=== PATIENT | female | born 1950 | race Two or more races ===

== ENCOUNTER → 2021-05-17 14:30 | Outpatient (BNVA) | payer MEDICARE, SELFPAY | PROVIDERS: PCP Nurse Practitioner Family; Visit Provider Nurse Practitioner Family | DX: R56.9 Unspecified convulsions (principal); G47.33 Obstructive sleep apnea (adult) (pediatric); G47.61 Periodic limb movement disorder; Z79.899 Other long term (current) drug therapy | CPT/HCPCS: 99212 ==

== ENCOUNTER → 2021-09-10 13:57 | Outpatient (BNVA) | payer MEDICARE, SELFPAY | PROVIDERS: PCP Nurse Practitioner Family; Visit Provider Nurse Practitioner Family | DX: G47.33 Obstructive sleep apnea (adult) (pediatric) (principal); R56.9 Unspecified convulsions | CPT/HCPCS: 99212 ==

== ENCOUNTER → 2022-05-02 14:08 | Outpatient (BNVA) | payer MEDICARE, SELFPAY | PROVIDERS: PCP Nurse Practitioner Family; Visit Provider Nurse Practitioner Family | DX: R56.9 Unspecified convulsions (principal); G47.33 Obstructive sleep apnea (adult) (pediatric); Z79.899 Other long term (current) drug therapy; Z63.4 Disappearance and death of family member | CPT/HCPCS: 99212 ==

== ENCOUNTER → 2022-10-30 11:41 | Outpatient (BNVA) | payer MEDICARE, SELFPAY | PROVIDERS: PCP Nurse Practitioner Family; Visit Provider Nurse Practitioner Family | DX: R56.9 Unspecified convulsions (principal); G47.33 Obstructive sleep apnea (adult) (pediatric) | CPT/HCPCS: 99212 ==

== ENCOUNTER 2023-09-01 10:53 | Outpatient (AMB) | payer MEDICARE, SELFPAY ==
--- NOTE | 2023-09-01 11:16 | MHC.OFFVIS ---
Vital Signs 09/01/23 11:25 Height 5 ft 4 in Weight 124 lb 8 oz BMI 21.4 BP 115/80 Blood Pressure Location Rt brachial Position Sitting Pulse 82 Pulse Source Pulse Oximeter Pulse Oximetry (%) 96 Oxygen Delivery Method Room Air Intake Visit Reasons: follow up-CONF Intake Note: Patient presents for f/u. Allergies Seasonal Allergies Allergy (Unknown, Verified 09/01/23 11:20) Unknown Medication List - Last Reconciled 09/01/23 by MILTON Chavis alendronate (Fosamax) 70 mg PO QWEEK calcium carbonate (Oyster Shell Calcium) 500 mg PO DAILY cholecalciferol (vitamin D3) 25 mcg PO DAILY levetiracetam 500 mg PO BID 30 days lisinopril 5 mg PO DAILY HPI Comments Details: 73-yr-old female presents for f/u visit. Pt states she was started on Calcium and Alendronate for osteoporosis- which she is tolerating well. No seizures. Sleeping ok- sometimes may have fragmented sleep, and may take day time naps- notes she lives alone. States her memory is good- may keep lists if she has a couple of things to do. Recently did not pay a bill, but thinks she just did not see the bill. Doing word finding puzzles. She is trying to stay active. Working in her garden. Has been having some recent increased allergy symptoms- tends to happen around this time of year. Plans to buy OTC Claritin. She is compliant with Keppra. Tolerating well. She states she has routine blood work at [facility]. No alcohol or drug use. [facility] Surgical History H/O section Family History Mother Diabetes HTN (hypertension) Asthma Sister Colon cancer Breast cancer Social History Alcohol intake: former Patient Tobacco Use Status: Never used Tobacco Review of Systems Const All systems reviewed & are unremarkable except as noted in HPI and below Physical Exam Vital Signs: Last Vital Signs Pulse 82 09/01/23 11:25 BP 115/80 09/01/23 11:25 Pulse Ox 96 09/01/23 11:25 Oxygen Delivery Method Room Air 09/01/23 11:25 BMI result Body Mass Index 21.4 Const General: cooperative and no acute distress Orientation/consciousness: patient oriented x3 HEENT Head: Yes normocephalic Resp Effort & Inspection: normal respiratory effort and able to speak in complete sentences Neuro General: patient oriented x3, gait normal and CN's II-XI intact bilaterally Cognition (Neuro): normal cognition Motor exam (neuro): 5/5 motor strength present throughout Psych Appearance: grossly normal Mental Status: mental status grossly normal Speech and movement: Normal speech and movement present Affect: normal affect Attitude: cooperative Thought process: Normal thought process present Thought content: Normal thought content present Insight: Good insight present (Psych) Judgement: Good judgement present (Psych) Assessment & Plan Assessment & Plan (1) Seizure: Code(s): R56.9 - Unspecified convulsions Category: Medical (2) Obstructive sleep apnea: Comment: AHI 12/hr, O2 cary 82%, PLMS 30/hr with arousal index of 7.8/hr Code(s): G47.33 - Obstructive sleep apnea (adult) (pediatric) Category: Medical Plan Continue Keppra 500mg bid. Will request labs from PCP office. Pt does NOT drive. For MILD FELICIANO- monitor sleep. Pt has declined PAP tx. f/u in 12 months or sooner prn. Medications: Refilled levetiracetam 500 mg PO BID 30 days 60 tabs 11RF Coding Level of Care Code Est Pt Level 4 (66893) Diagnoses Seizure R56.9 Obstructive sleep apnea G47.33
[2023-09-01 11:25] VITALS: BP 115/80; PULSE 82; O2SAT 96; BMI 21.4
== END 2023-09-01 12:12 | disposition home or self-care (01) ==
PROVIDERS: PCP Nurse Practitioner Family; Visit Provider Nurse Practitioner Family
DX: R56.9 Unspecified convulsions (principal); G47.33 Obstructive sleep apnea (adult) (pediatric)
CPT/HCPCS: 99214

== ENCOUNTER → 2023-09-01 10:53 | Outpatient (BNVA) | payer MEDICARE, SELFPAY | PROVIDERS: PCP Nurse Practitioner Family; Visit Provider Nurse Practitioner Family | DX: G47.33 Obstructive sleep apnea (adult) (pediatric) (principal); R56.9 Unspecified convulsions | CPT/HCPCS: 99212 ==

== ENCOUNTER 2024-08-31 10:54 | Outpatient (REF) | payer MEDICARE, SELFPAY ==
--- OUTSIDE RECORDS SUMMARY | 2024-08-31 13:46 | XMS_ITS | Clinical Summary ---
Author Organization [facility] Address [address] [place] [address] Care Team Providers Care Grip Name Role Phone Madelaine Donald PA-C Primary Care Provider [phone] Source Comments PLEASE NOTE, if this patient is a minor, it may be UNLAWFUL to discuss sensitive information that is contained in these records (such as FAMILY PLANNING, MENTAL HEALTH or SUBSTANCE ABUSE) with the minor patient's parent or other person without the patient's specific authorization.[facility] Allergies No known active allergies Medications DAILY-DANYELL tablet Take 1 Tab by mouth once [...] 11/28/20 - POSITIVE FOR OSTEOPOROSIS. Cocaine abuse ([facility]) 11/18/2018 Mixed hyperlipidemia 11/12/2018 Closed fracture of nasal bones 11/11/2018 Status epilepticus ([facility]) 11/11/2018 Alcohol abuse 11/11/2018 Closed fracture of orbit ([facility]) 11/11/2018 Essential hypertension 11/11/2018 Resolved Problems [...] Wellness Visit 04/16/2022 1 06/17/2020, 02/21/2020, 11/11/2018 [id number] ( season) 2023 12/10/2021, 05/25/2021, 09/11/2020, Additional [...] EST) GLUCOSE 147(H) 65 - 99 mg/dL [facility] Comment: ?Fasting reference interval For someone without known diabetes, a glucose value >125 mg/dL indicates that they may have diabetes and this should be confirmed with a follow-up test. UREA NITROGEN (BUN) 7 7 - 25 mg/dL [facility] CREATININE (blood) 0.72 0.60 - 1.00 mg/dL [facility] EGFR 88 > OR = 60 mL/min/1. 73m2 [facility] BUN/CREATININE RATIO SEE NOTE: 5 [employer] Comment: ?? Not Reported: BUN and Creatinine are within ?? reference range. ? SODIUM 130(L) 135 - 146 mmol/L [facility] POTASSIUM 4.6 3.5 - 5.3 mmol/L [facility] CHLORIDE 94(L) 98 - 110 mmol/L [facility] CARBON DIOXIDE 28 20 - 32 mmol/L [facility] CALCIUM 9.8 8.6 - 10.4 mg/dL [facility] Blood Blood / Unknown 04/06/2024 1 1:04 AM EST 04/06/2024 11:05 AM EST Madelaine Donald PA-C LAB - BLOOD DRAW Final Resul t [facility] [address] [address], [facility] [address] [address] * HISTORIC MAMMOGRAM (08/15/2022 3:00 AM EDT) 08/15/2022 3:00 AM EDT Cait Bautista [employer]AT DOCK OPERATOR IMG MAMMO Final Resul t * (ABNORMAL) LIPID PANEL (04/16/2021 4:01 PM EST) CHOLESTEROL, TOTAL 223(H) <200 mg/dL [facility] HDL CHOLESTEROL 35(L) > OR = 50 mg/dL [facility] TRIGLYCERIDES 195(H) <150 mg/dL [facility] LDL-CHOLESTEROL 154(H) 99 mg/dL (calc) [facility] Comment: Reference range: <100 Desirable range <100 mg/dL for primary prevention; ?? <70 mg/dL for patients with CHD or diabetic patients with > or = 2 CHD risk factors. LDL-C is now calculated using the Alcira calculation, which is a validated novel method providing better accuracy than the Friedewald equation in the estimation of LDL-C. Cali ADAMS et al. SUBHASH. 2013;310(19): 2349-2260 (http://education.[employer] Education.DocuSpeak/faq/QLQ920) CHOL/HDLC RATIO 6.4(H) <5.0 (calc) [facility] NON-HDL CHOLESTEROL 188(H) <130 mg/dL (calc) [facility] Comment: For patients with diabetes plus 1 major ASCVD risk factor, treating to a non-HDL-C goal of <100 mg/dL (LDL-C of <70 mg/dL) is considered a therapeutic option. Blood Blood / Unknown 04/16/2021 4 :01 PM EST 04/16/2021 4:01 PM EST [facility] - BLOOD DRAW Final Resu lt [facility] [address] [address], [facility] [address] [address] * DUAL-ENERGY X-RAY ABSORPTIOMETRY (DXA), BONE DENSITY STUDY, 1 OR MORE (12/03/2020 7:39 PM EDT) 12/03/2020 7:39 PM EDT [facility] IMG DXA Final Resul t * REFERRAL FOR COLONOSCOPY (05/19/2020) [facility] REFERRAL Edited Resu lt - Final * HEPATITIS A,B,C PANEL (11/12/2018 8:45 AM EDT) HEPATITIS B SURFACE ANTIBODY NEGATIVE NEGATIVE [facility] HEPATITIS B SURFACE ANTIGEN NEGATIVE NEGATIVE [facility] Comment: Over the counter supplements containing high doses of biotin may interfere with this assay. ??If interference is suspected, patients shoud be retested after refraining from biotin supplements for 72 hours. HEPATITIS C VIRUS DIAGNOSTIC NEGATIVE NEGATIVE [facility] HEPATITIS B CORE ANTIBODY NEGATIVE NEGATIVE [facility] HEPATITIS A ANTIBODY TOTAL NEGATIVE NEGATIVE [facility] Comment: Over the counter supplements containing high doses of biotin may interfere with this assay. ??If interference is suspected, patients shoud be retested after refraining from biotin supplements for 72 hours. Blood specimen (specimen) Blood / Unknown 11/12/2018 8:45 AM EDT 11/12/2018 9:08 AM EDT Narrative [facility] - 11/12/2018 12:25 PM EDT [employer], a member of [address] [address] Project Program Manager - Viktoriya Jade MD PT ID [id number] ORD# [id number] [facility] - BLOOD DRAW Edited Res ult - Final [facility] [address] [place] [address], from Last 3 Months or Most Recently Relevant to Health Maintenance Insurance HEALTH [employer]AF[employer] MED[employer]ARE Care Teams Grip Relationship Specialty Start Date End Date Madelaine Donald PA-C [address] [place] [address] PCP - General FAMILY MEDICINE, KATE 08/31/21
--- OUTSIDE RECORDS SUMMARY | 2024-08-31 13:46 | XMS_ITS | Clinical Summary ---
Author Organization [facility] Address [address] [place] [address] Care Team Providers Care Aluminum Shingle Roofer Name Role Phone Unavailable Primary Care Provider [...]
[2024-08-31 17:38] LABS: MANUAL DIFF FLAG NO
[2024-08-31 17:48] LABS: Basophils Percent Auto 0.8 % (0-2); Eosinophils Absolute Auto 0.1 X10*3/uL (0.0-0.4); Eosinophils Percent Auto 2.8 % (0-4); Hematocrit 37.1 % (37.0-47.0); Hemoglobin 12.8 g/dl (12.0-16.0); Imm Gran Abs Auto 0.01 X10*3/uL (0.00-0.03); Imm Gran Pct Auto 0.3 % (0.0-0.4); Lymphocytes Absolute Auto 1.4 X10*3/uL (1.2-4.9); Lymphocytes Percent Auto 36.5 % (20-40); Mean Corpuscular HGB Conc 34.5 g/dl (31.0-35.0); Mean Corpuscular Hemoglobin 32.5 pg (27.0-33.0); Mean Corpuscular Volume 94.2 fL (80.0-98.0); Mean Platelet Volume 8.9 fL (9.4-12.3); Monocytes Absolute Auto 0.6 X10*3/uL (0.1-1.2); Monocytes Percent Auto 13.9 % (2-11); Neutrophils Absolute Auto 1.8 x10*3/uL (2.0-8.3); Neutrophils Percent Auto 45.7 % (45-73); Platelet Count 314 X10*3/uL (160-400); Red Blood Count 3.94 X10*6/uL (4.20-5.50); Red Cell Distribution Width 12.4 % (11.0-16.0)
[2024-08-31 18:49] LABS: Alanine Aminotransferase 33 U/L (0-31); Albumin Level 4.4 g/dL (3.5-5.0); Alkaline Phosphatase 58 U/L (39-117); Anion Gap 14 (12-20); Aspartate Amino Transferase 41 U/L (5-31); Bilirubin Total 1.2 mg/dL (0.0-1.0); Blood Urea Nitrogen 6 mg/dL (9-16); Calcium 9.6 mg/dL (8.4-10.2); Carbon Dioxide 26 mmol/L (22-29); Chloride 95 mmol/L (96-108); Estimated Glomerular Filt Rate > 60; Glucose Random 90 mg/dL (60-115); Potassium 4.7 mmol/L (3.3-5.1); Sodium 130 mmol/L (135-145); Total Protein 8.4 g/dL (6.5-8.0)
== END 2024-08-31 10:55 | disposition home or self-care (01) ==
LOC: HO.HKASLDS 10:54
PROVIDERS: Visit Provider Nurse Practitioner Family
DX: R56.9 Unspecified convulsions (principal); G47.33 Obstructive sleep apnea (adult) (pediatric)
CPT/HCPCS: 36415; 80053; 85025; 99212

== ENCOUNTER 2024-08-31 10:54 | Outpatient (AMB) | payer MEDICARE, SELFPAY ==
[2024-08-31 11:27] VITALS: BP 130/82; PULSE 90; O2SAT 97; BMI 21.5
--- NOTE | 2024-08-31 11:27 | A.OFFVIS_ITS ---
Vital Signs 08/31/24 11:27 Height 5 ft 4 in Weight 125 lb BMI 21.5 BP 130/82 Blood Pressure Location Rt brachial Position Sitting Pulse 90 Pulse Source Pulse Oximeter Pulse Oximetry (%) 97 Oxygen Delivery Method Room Air Intake Visit Reasons: 1 yr follow up Intake Note: Patient presents follow up for FELICIANO/Seizures. Refrigerated Cargo Clerk Required: No Accompanied by: Self / Same As Patient Allergies Seasonal Allergies Allergy (Unknown, Verified 08/31/24 11:35) Unknown Medication List - Last Reconciled 08/31/24 by MILTON Chavis alendronate (Fosamax) 70 mg PO QWEEK calcium carbonate (Oyster Shell Calcium) 500 mg PO DAILY cholecalciferol (vitamin D3) 25 mcg PO DAILY levetiracetam 500 mg PO BID 30 days lisinopril 5 mg PO DAILY HPI Comments Details: 74-yr-old female presents for f/u visit. Pt denies any interval medical history changes. We did not receive lab work from patient's PCP office after last visit, review of [employer], shows last BMP in March 2024, showed low serum sodium level, no CBC or LFTs completed. Patient wonders if she should reduce her levetiracetam dose. Pt denies any interval seizures. Sleeping ok. States her memory is good. May forget an actor's name- briefly then it comes to her. She is trying to stay active at home. Needs more help with her garden d/t her back pain- d/t her osteoporosis. She is compliant with Keppra. Tolerating well. She states she has routine blood work at [facility]. No alcohol or drug use. [facility] Surgical History H/O section Family History Mother Diabetes HTN (hypertension) Asthma Sister Colon cancer Breast cancer Social History Alcohol intake: former Patient Tobacco Use Status: Never used Tobacco Physical Exam Vital Signs: Last Vital Signs Pulse 90 08/31/24 11:27 BP 130/82 08/31/24 11:27 Pulse Ox 97 08/31/24 11:27 Oxygen Delivery Method Room Air 08/31/24 11:27 BMI result Body Mass Index 21.5 Const General: cooperative and no acute distress Orientation/consciousness: patient oriented x3 HEENT Head: Yes normocephalic Resp Effort & Inspection: normal respiratory effort and able to speak in complete sentences Neuro General: patient oriented x3, gait normal and CN's II-XI intact bilaterally Cognition (Neuro): normal cognition Motor exam (neuro): 5/5 motor strength present throughout Psych Appearance: grossly normal Mental Status: mental status grossly normal Speech and movement: Normal speech and movement present Affect: normal affect Attitude: cooperative Thought process: Normal thought process present Thought content: Normal thought content present Insight: Good insight present (Psych) Judgement: Good judgement present (Psych) Assessment & Plan Assessment & Plan (1) Seizure: Code(s): R56.9 - Unspecified convulsions Category: Medical (2) Obstructive sleep apnea: Comment: AHI 12/hr, O2 cary 82%, PLMS 30/hr with arousal index of 7.8/hr Code(s): G47.33 - Obstructive sleep apnea (adult) (pediatric) Category: Medical Plan Discussed that I would not reduce levetiracetam dose, as her seizure activity is well controlled on low-dose levetiracetam, which she is tolerating well. Discussed patient's seizure activity that precipitated use of levetiracetam, was a generalized tonic-clonic seizure that occurred while driving. Patient's risk of seizure recurrence if she were to stop levetiracetam is not negligible, thus I suggest she continue her levetiracetam at current dosage. Continue Keppra 500mg bid. Check CBC and CMP today. Pt does NOT drive. For mild FELICIANO: Continue to monitor sleep. Pt has declined PAP tx. Will follow-up upon review of above and patient to follow-up in clinic in 12 months or sooner prn. Orders: Orders Complete Blood Count Auto Diff Today R56.9 - Unspecified convulsions Comprehensive Met. Panel Today R56.9 - Unspecified convulsions Medications: Changed From levetiracetam 500 mg PO BID 30 days 60 tabs 11RF To levetiracetam 500 mg PO BID 90 days 180 tabs 3RF Coding Level of Care Code Est Pt Level 4 (25103) Diagnoses Seizure R56.9 Obstructive sleep apnea G47.33
--- OUTSIDE RECORDS SUMMARY | 2024-08-31 12:37 | XMS_ITS | Clinical Summary ---
[facility] [address] [place] [address] Care Team Providers Care Insurance Claims Analyst Name Role Phone Unavailable Primary Care Provider Unavailabl e Social History Tobacco Use Types Packs/Day Years Used Date Smoking Tobacco: Never Assessed Comments Unknown Sex and Gender Information Value Date Recorded Sex Assigned at Not on file Legal Sex Female 5:14 PM EST Gender Identity Not on file Sexual Orientation Not on file Plan of Treatment Health Maintenance Due Date Last Done Comments Breast Cancer Screening 1950 DTaP,Tdap,and Td Vaccines (1 - Tdap) 1970 11/18/2018 Pneumococcal Vaccine: 50+ Years (1 of 1 - PCV) 2001 01/19/2020 Zoster Vaccines (1 of 2) 2001 04/24/2020, 01/27 COVID-19 Vaccine ( season) 2023 12/10/2021, 05/25/2021, 09/11/2020, Additional history exists Influenza Vaccine (Season Ended) 2024 01/19/2020 RSV Immunization Adult Patients (1 - 1-dose 75+ series) 2026 HIB Vaccines Aged Out No longer eligi ble based on patient's age to complete this topic HPV Vaccines Aged Out No longer eligi ble based on patient's age to complete this topic Hepatitis A Vaccines Aged Out No long er eligible based on patient's age to complete this topic Hepatitis B Vaccines Aged Out 01/08/2019, 11/19/19 19 No longer eligible based on patient's age to complete this topic IPV Vaccines Aged Out No longer eligi ble based on patient's age to complete this topic MMR Vaccines Aged Out No longer eligi ble based on patient's age to complete this topic Meningococcal ACWY Vaccine Aged Out N o longer eligible based on patient's age to complete this topic Meningococcal B Vaccine Aged Out No l onger eligible based on patient's age to complete this topic RSV Immunization Patients Under 20 months Aged Out No longer eligible based on patient's age to complete this topic Varicella Vaccines Aged Out No longer eligible based on patient's age to complete this topic
--- OUTSIDE RECORDS SUMMARY | 2024-08-31 12:37 | XMS_ITS | Clinical Summary ---
Author Organization [facility] Address [address] [place] [address] Care Team Providers Care Knitting Machine Operator Automatic Name Role Phone Madelaine Donald PA-C Primary Care Provider [phone] Source Comments PLEASE NOTE, if this patient is a minor, it may be UNLAWFUL to discuss sensitive information that is contained in these records (such as FAMILY PLANNING, MENTAL HEALTH or SUBSTANCE ABUSE) with the minor patient's parent or other person without the patient's specific authorization.[facility] Allergies No known active allergies Medications DAILY-DAYNELL tablet Take 1 Tab by mouth once daily 0 9 Active levETIRAcetam (KEPPRA) 500 mg tabletIndications :Seizure (HCC-CMS) Take 1 Tablet by mouth 2 (two) times daily 1 Active calcium (OS-HEMANTH) 500 mg calcium (1,250 mg) tabletIndications :Age-related osteoporosis without current pathological fracture TAKE ONE TABLET BY MOUTH EVERY DAY. FAB UN COMPRIMIDO A.L DONNA 100 Tablet 1 4 Active alendronate (FOSAMAX) 70 mg tabletIndications :Age-related osteoporosis without current pathological fracture TAKE ONE TABLET BY MOUTH EVERY 7 DAYS 12 Tablet 1 4 Active VITAMIN D3 25 mcg (1,000 unit) capsuleIndication s:Vitamin D deficiency TAKE ONE CAPSULE BY MOUTH EVERY DAY 90 Capsule 1 4 Active lisinopriL 5 mg tabletIndications :Essential hypertension TAKE ONE TABLET BY MOUTH EVERY DAY 100 Tablet 1 4 Active Active Problems Problem Noted Date Diagnosed Date Age-related osteoporosis wit hout current pathological fracture 12/10/2020 Overview (12/10/2020): DEXA BONE DENSITY DONE 11/28/20 - POSITIVE FOR OSTEOPOROSIS. Cocaine abuse ([facility]) 11/18/2018 Mixed hyperlipidemia 11/12/2018 Closed fracture of nasal bones 11/11/2018 Status epilepticus ([facility]) 11/11/2018 Alcohol abuse 11/11/2018 Closed fracture of orbit ([facility]) 11/11/2018 Essential hypertension 11/11/2018 Resolved Problems Problem Noted Date Diagnosed Date Resolved Date HIV exposure 11/12/2018 04/16/2019 Immunizations Immunization Administration Dates Next Due Flu, High Dose, 65y+, Fluzon e High Dose 01/19/2020 Hep B, Adult/Adol (ENERGIX/RECOMBIVAX) 01/08/2019,11/18/2018 Moderna COVID-19 Vaccine, re d cap blue label, 12+ Primary Series 12/10/2021,05/25/2021,09/11/2020,08/12 PNEUMOCOCCAL CONJUGATE PCV 13 01/19/2020 TDAP 11/18/2018 ZOSTER VACCINE, RECOMBINANT (SHINGRIX) 04/24/2020,02/21/2020 04/24/2020 Social History Tobacco Use Types Packs/Day Years Used Date Smoking Tobacco: Never Smokeless Tobacco: Never Tobacco Cessation:Counseling Given: Not Answered Alcohol Use Standard Drinks/Week Comments Not Currently 2 (1 standard drink = 0.6 oz pur e alcohol) Social Connections Answer Date Recorded Connectedness 0 12/10/2021 Financial Resource Strain Answer Date R ecorded Financial Resource Strain 0 2021 Stress Answer Date Recorded Stress 0 12/10/2021 Physical Activity Answer Date Recorded Physical Activity 0 12/14/2018 Food Insecurity Answer Date Recorded Food 0 12/10/2021 Transportation Needs Answer Date Record ed Transportation 0 12/10/2021 Housing Stability Answer Date Recorded Housing 0 12/10/2021 Safety and Environment Answer Date Nasim rded Safety 0 12/14/2018 Utilities Answer Date Recorded Utilities 0 12/10/2021 Employment Answer Date Recorded Employment 0 12/14/2018 Comments No Sex and Gender Information Value Date Recorded Sex Assigned at Female 11/11/2018 7:49 PM PDT Legal Sex Female 9:00 AM PDT Gender Identity Female 11/11/2018 7:49 PM PDT Sexual Orientation Straight 11/11/2018 7: 49 PM PDT Last Filed Vital Signs Vital Sign Reading Time Taken Comments Blood Pressure 116/64 12/10/2021 11:22 AM EDT Pulse 88 12/10/2021 11:22 AM EDT Temperature 36.7 ??C (98.1 ??F) 12/10/2021 11:22 AM E DT Respiratory Rate 20 12/10/2021 11:22 AM EDT Oxygen Saturation - - Inhaled Oxygen Concentration - - Weight 54 kg (119 lb) 12/10/2021 11:22 AM EDT Height 160 cm (5' 3 ) 12/10/2021 11:22 AM EDT Body Mass Index 21.08 12/10/2021 11:22 AM EDT Plan of Treatment Health Maintenance Due Date Last Done Comments Tobacco Screening 1950 CT Colonography 02/25/1996 FIT/gFOBT 02/25/1996 Fecal DNA 02/25/1996 Flexible Sigmoidoscopy 02/25/1996 Imm-Hepatitis B (3 of 3 - 19 + 3-dose series) 05/21/2019 01/08/2019, 11/18/2018 Imm-Pneumococcal 65+ (2 of 2 - PPSV23) 01/18/2021 01/19/2020 Falls Prevention 02/20/2021 02/21/2020 Medicare Annual Wellness Visit 04/16/2022 1 06/17/2020, 02/21/2020, 11/11/2018 [id number] ( season) 2023 12/10/2021, 05/25/2021, 09/11/2020, Additional history exists Imm-Influenza (#1) 2023 01/19/2020 Lipid Screening 04/16/2024 04/16/2021, 01/27, 11/12/2018 Alcohol and Drug Screen 04/28/2024 12/11/19, 04/16/2021, 02/21/2020, Additional history exists Depression Annual Screen 04/28/2024 12/10/2021 Breast Cancer Screening (Mammogram) 08/15/2024 08/15/2022, 07/21/2021, 07/24/2020, Additional history exists Diabetes Screening 04/06/2025 04/06/2024, 0 06/03/2022, 04/16/2021, Additional history exists Colonoscopy 05/19/2025 05/19/2020 Colorectal Cancer Screening 05/19/2025 Imm-DTaP/Tdap/Td (2 - Td or Tdap) 11/18/2028 019 Hepatitis C Screening Completed 11/12/2018 Imm-Zoster, Recombinant Completed 04/24/2020, 02/20 Bone Density Screening Completed 12/03/2020, 2020 Procedures Procedure Name Priority Date/Time Associated Diagnosis Comments BASIC METABOLIC PANEL CALCIUM TOTAL Routine 04/06/2024 11:04 AM EST Essential hypertension HISTORIC MAMMOGRAM 08/15/2022 3: 00 AM EDT LIPID PANEL Routine 04/16/2021 4:01 PM EST Encounter for general adult medical examination w/o abnormal findings DXA BONE DENSITY STUDY 1/> SITES AXIAL SKEL Routine 12/03/2020 7:39 PM EDT Encounter for screening for osteoporosis REFERRAL FOR COLONOSCOPY Routine 05/19/2020 Screen for colon cancer HEPATITIS A,B,C PANEL Routine 11/12/2018 8:45 AM EDT Encounter for general adult medical examination with abnormal findings from Last 3 Months or Most Recently Relevant to Health Maintenance Results * (ABNORMAL) BASIC METABOLIC PANEL CALCIUM TOTAL (04/06/2024 11:04 AM EST) GLUCOSE 147(H) 65 - 99 mg/dL [facility] Comment: ?Fasting reference interval For someone without known diabetes, a glucose value >125 mg/dL indicates that they may have diabetes and this should be confirmed with a follow-up test. UREA NITROGEN (BUN) 7 7 - 25 mg/dL [facility] CREATININE (blood) 0.72 0.60 - 1.00 mg/dL [facility] EGFR 88 > OR = 60 mL/min/1. 73m2 [facility] BUN/CREATININE RATIO SEE NOTE: [facility] Comment: ?? Not Reported: BUN and Creatinine are within ?? reference range. ? SODIUM 130(L) 135 - 146 mmol/L [facility] POTASSIUM 4.6 3.5 - 5.3 mmol/L [facility] CHLORIDE 94(L) 98 - 110 mmol/L [facility] CARBON DIOXIDE 28 20 - 32 mmol/L [facility] CALCIUM 9.8 8.6 - 10.4 mg/dL [facility] Blood Blood / Unknown 04/06/2024 1 1:04 AM EST 04/06/2024 11:05 AM EST Madelaine Donald PA-C LAB - BLOOD DRAW Final Resul t [facility] [address] [address], [facility] [address] [address] * HISTORIC MAMMOGRAM (08/15/2022 3:00 AM EDT) 08/15/2022 3:00 AM EDT Cait Bautista TIME CLERK IMG MAMMO Final Resul t * (ABNORMAL) LIPID PANEL (04/16/2021 4:01 PM EST) CHOLESTEROL, TOTAL 223(H) <200 mg/dL [facility] HDL CHOLESTEROL 35(L) > OR = 50 mg/dL [facility] TRIGLYCERIDES 195(H) <150 mg/dL [facility] LDL-CHOLESTEROL 154(H) 99 mg/dL (calc) [facility] Comment: Reference range: <100 Desirable range <100 mg/dL for primary prevention; ?? <70 mg/dL for patients with CHD or diabetic patients with > or = 2 CHD risk factors. LDL-C is now calculated using the Alcira calculation, which is a validated novel method providing better accuracy than the Friedewald equation in the estimation of LDL-C. Cali ADAMS et al. SUBHASH. 2013;310(19): 1806-5514 (http://education.eGifter.[employer]/faq/VGO291) CHOL/HDLC RATIO 6.4(H) <5.0 (calc) [facility] NON-HDL CHOLESTEROL 188(H) <130 mg/dL (calc) [facility] Comment: For patients with diabetes plus 1 major ASCVD risk factor, treating to a non-HDL-C goal of <100 mg/dL (LDL-C of <70 mg/dL) is considered a therapeutic option. Blood Blood / Unknown 04/16/2021 4 :01 PM EST 04/16/2021 4:01 PM EST [facility] - BLOOD DRAW Final Resu lt [facility] [address] [address], [facility] [address] [address] * DUAL-ENERGY X-RAY ABSORPTIOMETRY (DXA), BONE DENSITY STUDY, 1 OR MORE (12/03/2020 7:39 PM EDT) 12/03/2020 7:39 PM EDT [facility] IMG DXA Final Resul t * REFERRAL FOR COLONOSCOPY (05/19/2020) [facility] REFERRAL Edited Resu lt - Final * HEPATITIS A,B,C PANEL (11/12/2018 8:45 AM EDT) HEPATITIS B SURFACE ANTIBODY NEGATIVE NEGATIVE [facility] HEPATITIS B SURFACE ANTIGEN NEGATIVE NEGATIVE [facility] Comment: Over the counter supplements containing high doses of biotin may interfere with this assay. ??If interference is suspected, patients shoud be retested after refraining from biotin supplements for 72 hours. HEPATITIS C VIRUS DIAGNOSTIC NEGATIVE NEGATIVE [facility] HEPATITIS B CORE ANTIBODY NEGATIVE NEGATIVE [facility] HEPATITIS A ANTIBODY TOTAL NEGATIVE NEGATIVE [facility] Comment: Over the counter supplements containing high doses of biotin may interfere with this assay. ??If interference is suspected, patients shoud be retested after refraining from biotin supplements for 72 hours. Blood specimen (specimen) Blood / Unknown 11/12/2018 8:45 AM EDT 11/12/2018 9:08 AM EDT Narrative [facility] - 11/12/2018 12:25 PM EDT [employer], a member of [address] [address] Miniature Set Constructor - Viktoriya Jade MD PT ID [id number] ORD# [id number] [facility] - BLOOD DRAW Edited Res ult - Final [facility] [address] [place] [address], from Last 3 Months or Most Recently Relevant to Health Maintenance Insurance HEALTH SAF[employer]Y NET DENTAL [employer] MEDICARE Care Teams Knitting Machine Operator Automatic Relationship Specialty Start Date End Date Madelaine Donald PA-C [address] [place] [address] PCP - General FAMILY MEDICINE, KATE 08/31/21
== END 2024-08-31 12:09 | disposition home or self-care (01) ==
LOC: HO.HSMS 10:55
PROVIDERS: Visit Provider Nurse Practitioner Family
DX: R56.9 Unspecified convulsions (principal); G47.33 Obstructive sleep apnea (adult) (pediatric)
CPT/HCPCS: 99214